=== PATIENT | male | born 1980 | race Caucasian/White ===

== ENCOUNTER 2016-11-12 10:10 | Emergency (ER) | payer OTHER ==
[~2016-11-12] VITALS: Ht 170.2 cm; Wt 130.6 kg
[2016-11-12 11:57] VITALS: BP 128/79
== END 2016-11-12 11:59 | disposition home or self-care (01) ==
LOC: ED 10:14
DX: J06.9 Acute upper respiratory infection, unspecified (principal)
CPT/HCPCS: 87070; 87651; 99282